=== PATIENT | female | born 1990 | race African-American/Black ===

== ENCOUNTER 2019-05-22 12:05 | Inpatient (IN) | payer SELFPAY ==
[2019-05-22 12:47] VITALS: BMI 37.5
[2019-05-22] MEDS ORDERED: DINOPROSTONE 10 MG VAGINAL SUPPOSITORY VG ONE (12:58)
[2019-05-22] MEDS ORDERED: SODIUM PHOSPHATE/NA BIPHOS 133 ML ENEMA PR ONE (12:58)
[2019-05-22] MEDS ORDERED: DEXTROSE 5%-LACTATED RINGERS 1,000 ML IV SCH (13:00)
--- NOTE | 2019-05-22 13:26 | HP ---
Past Medical History - Primary Care Physician PCP:: Priyanka Millard - Admission Chief Complaint: 28 yrs , 39.1 weeks by sono & 38.5 weeks bu dates is admitted for mild preclempsia for delivery. pt was evaluated 05/21/19 , BP max 150/87, urine protein 3+ , edema 2+, pt asymptomatic , rest of HEELP work was neg , pt agrees for induction of labor today. History of Present Illness: PNC at , [facility] wt gain 20 lbs during pregn panel :10/21/2018 : O Pos hbsag neg, hep c neg, rpr nr, hIv neg cf screen annabella, rubella immune, varicella immune, lead neg, sickle neg pap nilm, gc/ct neg 03/16/19 : 1 hr gtt 81, , rpr nr,, quantiferon neg 05/03/19 GBS neg, gc/ct neg, h/h 11.1/32.9 , hiv neg Chart review BP range afterc 33 weeks 143/87, , 130/80, 154/102, 150/88 . Urine Protein in range of 2+/3+ she is symptomatic for headache, or any visual disturbaces, vomiting etc . 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 No: Migraine Cardiovascular: Yes: HTN (during current pregn , labile) Pulmonary: No: Asthma, COPD ...: 4 ...Para: 1 (1 08/25/2009 6'5" [facility] ) ...Term: 1 ...: 0 ...Spon : 1 (2016) ...Induced : 1 (2016) ...Multiple Gestation: 0 ...LMP: 08/24/18 ... Weeks Gestation by Dates: 38.3 ...EDC by Dates: 06/02/19 ...EDC by Sono: 05/28/19 (39.1 weeks by sono ) Heme/Onc: No: Sickle Cell Trait Infectious Disease: No: AIDS, C-Diff, Herpes Zoster, HIV, MRSA, STD's, Tuberculosis, VREF, Other Psych: No: Addictions, Anxiety, Bipolar, Depression, Panic, Psychosis, Schizophrenia, Other Endocrine: No: Diabetes Mellitus, Hyperthyroidism, Hypothyroidism - Past Surgical History Past Surgical History: Yes: None Hx Myomectomy: No Hx Transabdominal Cerclage: No - Smoking History Smoking history: Never smoked - Alcohol/Substance Use Hx Alcohol Use: No Home Medications - Allergies Allergies/Adverse Reactions: Allergies Allergy/AdvReac Type Severity Reaction Status Date / Time No Known Allergies Allergy Verified 05/22/19 12:26 - Home Medications Home Medications: Ambulatory Orders Pnv No.95/Ferrous Fum/Folic AC [ Formula] 1 each PO DAILY 05/21/19 Physical Exam - Maternity Vital Signs: Vital Signs Temperature 98.0 F 05/22/19 12:41 Pulse Rate 80 05/22/19 12:41 Respiratory Rate 20 05/22/19 12:41 Blood Pressure 148/86 05/22/19 12:41 O2 Sat by Pulse Oximetry (%) Selected Entries 05/22/19 12:41 Weight 233 lb Constitutional: Yes: Well Nourished, No Distress, Obese Eyes: Yes: WNL HENT: Yes: WNL Neck: Yes: WNL Cardiovascular: Yes: WNL Breast(s): Yes: WNL - Abdominal Exam/OB Fundal Height: 38 Number of Fetuses: Single Presentation: Vertex Contractions: Yes Regularity: Irregular Intensity: Mild/Mod Monitor Mode: External Heart Rate (range): 120-130 Heart Rate Location: [facility] Category: I Accelerations: Uniform - Vaginal Exam/OB Vaginal Bleediing: No Speculum Exam: No Amniotic Membrane Status: Intact Presentation: Vertex/Position Station: -3 - Physical Exam Musculoskeletal: Yes: WNL Extremities: Yes: WNL. No: Calf Tenderness Edema: LLE: 2+, RLE: 2+ Integumentary: Yes: WNL, Tattoos Deep Tendon Reflex Grade: Normal +2 ...Motor Strength: WNL Psychiatric: Yes: WNL, Alert, Oriented - Labs Lab Results: Laboratory Tests 05/22/19 05/22/19 05/22/19 13:15 13:15 13:37 WBC 6.7 Hgb 11.6 Hct 34.9 Plt Count 207 Sodium Potassium Chloride Carbon Dioxide BUN Creatinine Random Glucose Uric Acid AST ALT Urine Protein 4+ H U Random Total Protein 666.6 H Urine Creatinine 511.0 H Protein/Creatinin Ratio 1.3 05/22/19 13:37 WBC Hgb Hct Plt Count Sodium 139 Potassium 3.9 Chloride 106 Carbon Dioxide 26 BUN 13.6 Creatinine 0.8 Random Glucose 86 Uric Acid 4.7 AST 36 ALT 32 Urine Protein U Random Total Protein Urine Creatinine Protein/Creatinin Ratio Problem List - Problems (1) with 39 completed weeks gestation Code(s): Z3A.39 - 39 WEEKS GESTATION OF (2) Mild preeclampsia Code(s): O14.00 - MILD TO MODERATE PRE-ECLAMPSIA, UNSPECIFIED TRIMESTER Qualifiers: Trimester: third trimester Qualified Code(s): O14.03 - Mild to moderate pre -eclampsia, third trimester (3) Elective induction of labor planned Code(s): ACU5373 - Assessment/Plan 28 yrs 39.1 weeks by sono & 38.5 weeks by dates admitted for induction of labor due to mild preclempsia gbs neg Plan cervidil induction started at 1.05 PM trial of vaginal delivery close monitoring of BP
[2019-05-22 14:00] LABS: EPI CELLS 9.5 /HPF (0-5/HPF); HYALINE CASTS 61 /lpf (0-8); PH,URINE 5.5 (5.0-8.0); URINE APPEARANCE CLOUDY; URINE BACTERIA 200.1 /hpf (NEGATIVE); URINE BILIRUBIN 1+ (NEGATIVE); URINE COLOR DK YELLOW; URINE GLUCOSE (UA) NEGATIVE (NEGATIVE); URINE KETONE NEGATIVE (NEGATIVE); URINE LEUK ESTERASE TRACE (NEGATIVE); URINE NITRITE NEGATIVE (NEGATIVE); URINE PROTEIN 4+ (NEGATIVE); URINE RBC 1 /hpf (0-4); URINE WBC 34 /hpf (0-5)
[2019-05-22 14:14] LABS: BASO % 0.6 % (0-2.0); EOS % 0.5 % (0-4.5); HEMATOCRIT 34.9 % (32.4-45.2); HEMOGLOBIN 11.6 GM/dL (10.7-15.3); LYMPH % 24.1 % (8-40); MCH 32.1 pg (25.7-33.7); MCHC 33.3 g/dl (32.0-36.0); MEAN CELL VOLUME 96.5 fl (80-96); MEAN PLT VOLUME 10.7 fl (7.5-11.1); MONO % 9.4 % (3.8-10.2); NEUT % 65.4 % (42.8-82.8); PLATELET COUNT 207 K/MM3 (134-434); RBC 3.62 M/mm3 (3.60-5.2); RDW 13.3 % (11.6-15.6); WHITE BLOOD COUNT 6.7 K/mm3 (4.0-10.0)
[2019-05-22 14:42] LABS: ALBUMIN 2.3 g/dl (3.4-5.0); BILIRUBIN,TOTAL 0.2 mg/dL (0.2-1); BLOOD UREA NITROGEN 13.6 mg/dL (7-18); CALCIUM 8.4 mg/dL (8.5-10.1); CREATININE 0.8 mg/dL (0.55-1.3); POTASSIUM 3.9 mmol/L (3.5-5.1); URIC ACID 4.7 mg/dL (2.6-7.2)
[2019-05-22 14:48] LABS: INR 0.92 (0.83-1.09); PROTHROMBIN TIME (PATIENT) 10.9 SEC (9.7-13.0)
[2019-05-22 14:51] LABS: ACTIVATED PTT 31.6 SECONDS (25.2-36.5)
--- NOTE | 2019-05-23 01:41 | PN ---
Progress Note (short form) - Note Progress Note: cervidil removed at 1.30 AM 1-2,cm midpose, soft / 40 % / Vx -3 FHR 120-130 reactive , cat-1 UC 4-10 min , irregular, pt unaware Selected Entries 05/22/19 05/22/19 05/23/19 21:00 23:00 00:00 Temperature 97.6 F 97.8 F Pulse Rate 60 Blood Pressure 139/82 132/81 130/65 Plan insert 2nd cervidil watch for BP ct induction of labor 2.15 AM 2nd cervidil inserted Problem List - Problems (1) with 39 completed weeks gestation Code(s): Z3A.39 - 39 WEEKS GESTATION OF (2) Mild preeclampsia Code(s): O14.00 - MILD TO MODERATE PRE-ECLAMPSIA, UNSPECIFIED TRIMESTER Qualifiers: Trimester: third trimester Qualified Code(s): O14.03 - Mild to moderate pre -eclampsia, third trimester (3) Elective induction of labor planned Code(s): TQS6466 -
[2019-05-23] MEDS ORDERED: DINOPROSTONE 10 MG VAGINAL SUPPOSITORY VG ONE (02:15)
[2019-05-23] MEDS ORDERED: FENTANYL/BUPIVACAINE/NS/PF - PCEA - 50 ML DISP.SYRIN EP ONE (12:39)
[2019-05-23] MEDS ORDERED: ELECTROLYTE-148 SOLN 1,000 ML IV SCH (12:45)
--- NOTE | 2019-05-23 12:57 | PN ---
Progress Note, Labor Vaginal Exam #1 Labor Exam Date: 05/23/19 Labor Exam Time: 12:30 Heart Rate (range): 120 Dilatation: 5 Effacement (%): 90 Amniotic Membrane Status: Intact Presentation: Vertex/Position Station: 0 Remarks: fhr cat1 uc q3-5 min pt uncomfortable cervidil removed 12.45 PM srom clear Selected Entries 05/23/19 05/23/19 05/23/19 05:00 08:00 10:00 Temperature 98.5 F 98.0 F 98.2 F Pulse Rate 75 86 85 Blood Pressure 146/85 115/74 134/73 Blood Pressure Mean 05/23/19 12:00 Temperature Pulse Rate 67 Blood Pressure Blood Pressure 107 Mean Vaginal Exam #2 Labor Exam Date: 05/23/19 Labor Exam Time: 13:45 Heart Rate (range): 130 Dilatation: 10 Effacement (%): 100 Amniotic Membrane Status: Ruptured Presentation: Vertex/Position Station: +1 (+1/+2) Remarks: FHR cat-1 uc q2-3 min pt c/o pain BP 152/102 epidural received at 1.30 PM, , no pain relief no urge to push yet wait for passive descent, before encouraging her pushing
[2019-05-23] MEDS ORDERED: SODIUM CHLORIDE 0.9% P/F 10 ML VIAL IJ ONE ×2 (13:02)
[2019-05-23] MEDS ORDERED: BUPIVACAINE HCL/PF 2.5 MG/ML - 30 ML VIAL IJ ONE (13:03)
[2019-05-23] MEDS ORDERED: OXYTOCIN 20 UNITS in 0.9% NS 20 UNIT/1,000 ML INFUS.BAG IV ONE (13:47)
[2019-05-23] MEDS ORDERED: LIDOCAINE HCL 1% PRESERVATIVE FREE - 30ML VIAL ONE (13:47)
[2019-05-23] MEDS ORDERED: NALOXONE HCL 0.4 MG/ML VIAL IVPUSH PRN (13:52)
[2019-05-23] MEDS ORDERED: FENTANYL/BUPIVACAINE/NS/PF - PCEA - 50 ML DISP.SYRIN EP SCH (14:00)
[2019-05-23] MEDS: OXYTOCIN 20 UNITS in 0.9% NS 20 UNIT/1,000 ML INFUS.BAG IV SCH ×2 (14:20→19:00)
[2019-05-23] MEDS ORDERED: BENZOCAINE 20% 57 GM BOTTLE TP PRN (14:26)
[2019-05-23] MEDS ORDERED: oxyCODONE HCL 5 MG TABLET PO PRN (14:26)
[2019-05-23] MEDS ORDERED: WITCH HAZEL 50% (TUCKS) 40 PAD/JAR PAD TP PRN (14:26)
[2019-05-23] MEDS ORDERED: BISACODYL 10 MG SUPP.RECT RC PRN (14:26)
[2019-05-23] MEDS ORDERED: BENZOCAINE 28 GM HEMORRHOIDAL OINTMENT TP PRN (14:26)
--- NOTE | 2019-05-23 14:37 | PN ---
Delivery - Delivery Vaginal Delivery: No Problems, Spontaneous (, on sterile field, vx, laurence position, 9/10 , baby boy , immediate oral & nasal suction was done , perineum intact . Placenta delevered with membranes completely . cord blood collected . trivascular cord sponge count correct) EBL (cc): 300 (50 ml bladder cathetrized ) Delivery, Single - Stages of Labor Date 1st Stage Initiatied: 05/23/19 Time 1st Stage Initiated: 10:00 Date 2nd Stage Initiated: 05/16/19 Time 2nd Stage Initiated: 13:45 Date of Delivery: 05/23/19 Time of Delivery: 14:13 Date Placenta Delivered: 05/23/19 Time Placenta Delivered: 14:20 Placenta: Yes: Spontaneous, Uterine Exploration - Condition of Infant Tram Driver/Tag Maker Present: No Gender: Male Weight: 6 lb 4 oz Position: Left, OA Total Hours ROM (Hrs/Mins): 1.35 min - 1 Minute Total Score: 9 5 Minutes Total Score: 10 - Feeding Plan Initial Plan: Elected not to breastfeed exclusively throughout hospitalization Remarks - Remarks Remarks: 28 yrs , 38.5 weeks by dates, 39.1 weeks by sono admitted for induction of labor due to mid preclempsia ( proteinuria 4+ ) , elevation of BP pnc at 2, [facility] gbs neg Cervidil inserted 05/22/19 2nd cervidil inserted 05/23/19 pt progress in labor uneventful except during last 1 hr before delivery BP elevated , possible due to pain, she did not obtain relief from epidural labor analgesia urine sample sent for urine protei/cr ratio pp BP :149/81, 143/93 , 138/81, pulse 69 plan po labetalol prn
[2019-05-23] MEDS ORDERED: LABETALOL HCL 200 MG TABLET (FP) ONE (15:33)
[2019-05-23] MEDS: LABETALOL HCL 200 MG TABLET (FP) PO PRN (15:36)
[2019-05-23] MEDS: IBUPROFEN 600 MG TABLET (FP) PO PRN (17:48)
[2019-05-23] MEDS: FERROUS SO4 325 MG TABLET (FP) PO SCH (17:48)
[2019-05-23] MEDS: ACETAMINOPHEN 325 MG TABLET (FP) PO PRN (17:49)
[2019-05-23] MEDS ORDERED: CARBOPROST TROMETHAMINE 250 MCG/ML AMPUL IM ONE (18:52)
[2019-05-23] MEDS ORDERED: LABETALOL HCL 5 MG/1 ML (100MG/20 ML VIAL) IVPUSH ONE (18:55)
--- NOTE | 2019-05-23 19:05 | PN ---
Progress Note (short form) - Note Progress Note: nurse called me to tell pt is bleeding heavy, saturated chucks in the bed pt voiided urine 550 ml pt received 200 mg po labetalol at 4.36 PM Selected Entries 05/23/19 05/23/19 05/23/19 15:14 15:30 15:45 Temperature 97.7 F Pulse Rate Blood Pressure 155/87 154/83 147/101 H 05/23/19 16:25 Temperature Pulse Rate 89 Blood Pressure 145/106 H 6.45 PM pt alert ut upto umblicus MEU done large blood clots removed from lower segment approx total 100-150 ml blood clots bp 162/107 may be due to pain factor also stat IM Hemabate 250 mcg im given repeat BP 7.05PM 162/104 IV PUSH Labetlol 20 mg given Plan transfer pt to L&D for MgSo4 prophylaxis Laboratory Tests 05/23/19 15:00 U Random Total Protein 368.4 H Urine Creatinine 102.0 Protein/Creatinin Ratio 3.6 7.45PM ,pt had episode of diarrhea post im hemabate injection . ut firm upto umblicus c/o cramps . bleeding moderate to small amount BP 149/89 Mgso4 started Cconsult with Dr Crawford in AM Problem List - Problems (1) with 39 completed weeks gestation Code(s): Z3A.39 - 39 WEEKS GESTATION OF (2) Mild preeclampsia Code(s): O14.00 - MILD TO MODERATE PRE-ECLAMPSIA, UNSPECIFIED TRIMESTER Qualifiers: Trimester: third trimester Qualified Code(s): O14.03 - Mild to moderate pre -eclampsia, third trimester (3) Elective induction of labor planned Code(s): [id number] -
[2019-05-23] MEDS ORDERED: MAGNESIUM 4GM/H20 - 4 GM/100 ML IVPB IVPB SCH (19:30)
[2019-05-23] MEDS ORDERED: MAGNESIUM SULFATE 20GM/500ML - 20 GM/500 ML INFUS.BAG IVPB SCH (20:00)
[2019-05-23] MEDS ORDERED: MAGNESIUM SULFATE 20GM/500ML - 20 GM/500 ML INFUS.BAG ONE (20:16)
[2019-05-24] MEDS ORDERED: OXYTOCIN 20 UNITS in 0.9% NS 20 UNIT/1,000 ML INFUS.BAG IV ONE (04:54)
[2019-05-24] MEDS: OXYTOCIN 20 UNITS in 0.9% NS 20 UNIT/1,000 ML INFUS.BAG IV SCH (04:55)
[2019-05-24] MEDS: LABETALOL HCL 200 MG TABLET (FP) PO PRN ×2 (05:05→13:15)
[2019-05-24 07:08] LABS: BASO % 0.2 % (0-2.0); EOS % 0.3 % (0-4.5); HEMATOCRIT 28.7 % (32.4-45.2); LYMPH % 15.3 % (8-40); MCHC 34.7 g/dl (32.0-36.0); MEAN CELL VOLUME 95.1 fl (80-96); MEAN PLT VOLUME 9.9 fl (7.5-11.1); MONO % 10.4 % (3.8-10.2); NEUT % 73.8 % (42.8-82.8); PLATELET COUNT 176 K/MM3 (134-434); RBC 3.02 M/mm3 (3.60-5.2); RDW 13.4 % (11.6-15.6); WHITE BLOOD COUNT 10.3 K/mm3 (4.0-10.0)
--- NOTE | 2019-05-24 08:07 | PN ---
Post Progress Note - Subjective Subjective: no c/o headache or dizziness bleeding is not excessive no c/o cramps Post Day: 1 Type of Delivery: Vital Signs: Vital Signs Temperature 97.8 F 05/24/19 07:00 Pulse Rate 65 05/24/19 07:00 Respiratory Rate 18 05/24/19 07:00 Blood Pressure 120/68 05/24/19 07:00 O2 Sat by Pulse Oximetry (%) 99 05/23/19 15:30 Selected Entries 05/24/19 05/24/19 05/24/19 03:00 04:00 05:00 Temperature Pulse Rate 84 62 96 H Blood Pressure 137/76 121/71 143/90 05/24/19 06:00 Temperature 98.4 F Pulse Rate 74 Blood Pressure 154/78 Breast Exam: Yes: Soft. No: Engorged Uterus: Yes: Fundus Firm, Fundus below umbilicus, Non-tender Lochia: Yes: Rubra Lochia, amount: Moderate Extremities: Yes: Calves non-tender Perineum: Yes: Intact Activity: Ambulating - Labs Labs: CBC WBC 10.3 K/mm3 (4.0-10.0) H 05/24/19 06:50 RBC 3.02 M/mm3 (3.60-5.2) L 05/24/19 06:50 Hgb 10.0 GM/dL (10.7-15.3) L 05/24/19 06:50 Hct 28.7 % (32.4-45.2) L D 05/24/19 06:50 MCV 95.1 fl (80-96) 05/24/19 06:50 MCH 33.0 pg (25.7-33.7) 05/24/19 06:50 MCHC 34.7 g/dl (32.0-36.0) 05/24/19 06:50 RDW 13.4 % (11.6-15.6) 05/24/19 06:50 Plt Count 176 K/MM3 (134-434) 05/24/19 06:50 MPV 9.9 fl (7.5-11.1) 05/24/19 06:50 Absolute Neuts (auto) 7.6 K/mm3 (1.5-8.0) 05/24/19 06:50 Neutrophils % 73.8 % (42.8-82.8) 05/24/19 06:50 Lymphocytes % 15.3 % (8-40) D 05/24/19 06:50 Monocytes % 10.4 % (3.8-10.2) H 05/24/19 06:50 Eosinophils % 0.3 % (0-4.5) 05/24/19 06:50 Basophils % 0.2 % (0-2.0) 05/24/19 06:50 Nucleated RBC % 0 % (0-0) 05/24/19 06:50 Laboratory Tests 05/24/19 05/24/19 00:30 06:30 Magnesium 2.9 H 3.3 H Other Findings, Remarks: rs cta reflex 1+/1+ i/o 1000 /925 Problem List - Problems (1) with 39 completed weeks gestation Code(s): Z3A.39 - 39 WEEKS GESTATION OF (2) Mild preeclampsia Code(s): O14.00 - MILD TO MODERATE PRE-ECLAMPSIA, UNSPECIFIED TRIMESTER Qualifiers: Trimester: third trimester Qualified Code(s): O14.03 - Mild to moderate pre -eclampsia, third trimester (3) Elective induction of labor planned Code(s): LLN6611 - (4) (normal spontaneous vaginal delivery) Code(s): O80 - ENCOUNTER FOR FULL-TERM UNCOMPLICATED DELIVERY (5) PPH ( hemorrhage) Code(s): O72.1 - OTHER IMMEDIATE HEMORRHAGE Qualifiers: hemorrhage type: other immediate Qualified Code(s): O72.1 - Other immediate hemorrhage (6) examination following vaginal delivery Code(s): Z39.2 - ENCOUNTER FOR ROUTINE FOLLOW-UP Assessment/Plan pt stable, not symptomatic BP fluctuating reReceived one dose of po labetalol last night pt is concerned about undescended testes in the baby . will continue MgSo4 until 1.[address] Crawford consult today will repeat urine protein/cr ratio
[2019-05-24] MEDS: FERROUS SO4 325 MG TABLET (FP) PO SCH ×2 (09:20→18:08)
[2019-05-24] MEDS: PRENATAL VITAMINS W/ FOLIC ACID TABLET (FP) PO SCH (09:20)
--- NOTE | 2019-05-24 11:49 | CONSULT ---
Consult - text type - Consultation Consultation Note: Renal consult for hypertension This is a 28 year old woman with no significant medical history who presented at 39 weeks gestation with pre-eclamspia now s/p vaginal delivery on 05/23 with hypertension. Seen and examined at the bedside. She offers no acute complaints. Denies any pain, shortness of breath, fever, chills, N/V/D. Currently on IV Magnesium. Making urine. Has leg swelling. BP was elevated on last 2 OB visits. + Family history of hypertension. No personal history of hypertension. No Tobacco use. PMHx: as above Allergies: NKDA Family Hx: NC Social Hx: No T/A/D ROS: as per HPI, all other pertinent ros negative Home Medications Medication Instructions Recorded Pnv No.95/Ferrous Fum/Folic AC 1 each PO DAILY 05/21/19 [ Formula Tablet] Acetaminophen [Tylenol .Regular 650 mg PO Q3H PRN tablet 05/24/19 Strength -] Ferrous Sulfate [Feosol] 325 mg PO DAILY #30 tab 05/24/19 Ibuprofen [Motrin -] 200 mg PO Q4H PRN tablet 05/24/19 Vitamins (Sjr) - 1 tab PO DAILY #30 tablet 05/24/19 Vital Signs Temperature 98.3 F 05/24/19 11:00 Pulse Rate 70 05/24/19 10:00 Respiratory Rate 18 05/24/19 11:00 Blood Pressure 133/70 05/24/19 11:00 O2 Sat by Pulse Oximetry (%) 99 05/23/19 15:30 Intake & Output 05/21/19 05/22/19 05/23/19 05/24/19 23:59 23:59 23:59 23:59 Intake Total 2715 1250 Output Total 1200 1375 Balance 1515 -125 Weight 105.687 kg NAD awake and alert necks supple, no JVD RRR, no M/R CTA + trace LE edema CBC, BMP 05/24/19 06:50 05/22/19 13:37 Laboratory Tests 05/22/19 05/22/19 05/22/19 13:15 13:15 13:37 AST 36 ALT 32 Alkaline Phosphatase 331 H Urine Protein 4+ H Protein/Creatinin Ratio 1.3 05/23/19 05/24/19 15:00 09:00 AST ALT Alkaline Phosphatase Urine Protein Protein/Creatinin Ratio 3.6 1.5 Current Medications Acetaminophen (Tylenol -) 650 mg PO Q3H PRN PRN Reason: PAIN LEVEL 1-5 Last Admin: 05/23/19 17:49 Dose: 650 mg Benzocaine (Americaine 20% [place] -) 1 spray TP PRN PRN PRN Reason: PAIN Benzocaine (Americaine Ointment -) 1 applic TP PRN PRN PRN Reason: PAIN Bisacodyl (Dulcolax Suppository -) 10 mg RC PRN PRN PRN Reason: CONSTIPATION Ferrous Sulfate (Feosol -) 325 mg PO BIDWM [facility] Last Admin: 05/24/19 09:20 Dose: 325 mg Oxytocin/Sodium Chloride (Normal Saline+20 Units Oxytocin -) 20 unit in 1,000 mls @ 125 mls/hr IV [facility] Last Admin: 05/24/19 04:55 Dose: 125 mls/hr Magnesium Sulfate (Magnesium 4gm/H20 -) 4 gm in 100 mls @ 200 mls/hr IVPB [facility] Last Admin: 05/23/19 19:45 Dose: 200 mls/hr Magnesium Sulfate (Magnesium Sulfate 20gm/500ml -) 20 gm in 500 mls @ 25 mls/ hr IVPB [facility] Last Admin: 05/23/19 20:30 Dose: 25 mls/hr Ibuprofen (Motrin -) 600 mg PO Q4H PRN PRN Reason: PAIN LEVEL 4 - 6 Last Admin: 05/23/19 17:48 Dose: 600 mg Labetalol HCl (Normodyne -) 200 mg PO Q6H PRN PRN Reason: HYPERTENSION Last Admin: 05/24/19 05:05 Dose: 200 mg Oxycodone HCl (Roxicodone -) 5 mg PO Q6H PRN PRN Reason: PAIN LEVEL 7 - 10 Last Admin: 05/23/19 14:30 Dose: 5 mg Multivit/Folic Acid/Iron ( Vitamins (Sjr) -) 1 tab PO DAILY [facility] Last Admin: 05/24/19 09:20 Dose: 1 tab Senna/Docusate Sodium (Pericolace -) 2 tablet PO HS PRN PRN Reason: CONSTIPATION Witch Renay/Glycerin (Tucks Pads -) 1 pad TP PRN PRN PRN Reason: PAIN 28 year old woman with no significant medical history who presented at 39 weeks gestation with pre-eclamspia now s/p vaginal delivery on 05/23 with hypertension. 1. hypertension 2. Preeclamspia 3. s/p vaginal delivery 4. Anemia BP is currently moderated. Continue Labetallol 200mg Q6h PRN for SBP > 140, DBP > 90 Low sodium diet Minimize NSIAD use if possible explained symptoms of hypertension + hypotension Would monitor as inpatient for additional 24 hours Donell Crawford DO
[2019-05-24] MEDS ORDERED: ACETAMINOPHEN 325 MG TABLET (FP) ONE (13:14)
[2019-05-24] MEDS ORDERED: IBUPROFEN 600 MG TABLET (FP) PO ONE (13:14)
[2019-05-24] MEDS: ACETAMINOPHEN 325 MG TABLET (FP) PO PRN ×2 (13:15→22:58)
[2019-05-24] MEDS: IBUPROFEN 600 MG TABLET (FP) PO PRN ×2 (13:15→22:58)
[2019-05-24] MEDS ORDERED: SENNOSIDES/DOCUSATE COMBO (SENNA PLUS) TABLET (UD) PO PRN (22:00)
--- NOTE | 2019-05-25 07:46 | PN ---
Post Progress Note - Subjective Subjective: Patient is doing well, ambulating, toleraing PO, voiding, desiring infant's circumcision, no QIU, no vision changes, no CP, no sOB, no epigastric pain, no N/ V Post Day: 2 Type of Delivery: Vital Signs: Vital Signs Temperature 98.0 F 05/25/19 06:00 Pulse Rate 63 05/25/19 06:00 Respiratory Rate 20 05/25/19 06:00 Blood Pressure 128/72 05/25/19 06:00 O2 Sat by Pulse Oximetry (%) 99 05/23/19 15:30 Breast Exam: Yes: Other (deferred) Uterus: Yes: Fundus Firm Abdomen/GI: Yes: Abdomen soft (n/t, n/d) Lochia, amount: Moderate Extremities: Yes: Calves non-tender (2+DTR, no clonus) Activity: Ambulating - Labs Labs: CBC WBC 10.3 K/mm3 (4.0-10.0) H 05/24/19 06:50 RBC 3.02 M/mm3 (3.60-5.2) L 05/24/19 06:50 Hgb 10.0 GM/dL (10.7-15.3) L 05/24/19 06:50 Hct 28.7 % (32.4-45.2) L D 05/24/19 06:50 MCV 95.1 fl (80-96) 05/24/19 06:50 MCH 33.0 pg (25.7-33.7) 05/24/19 06:50 MCHC 34.7 g/dl (32.0-36.0) 05/24/19 06:50 RDW 13.4 % (11.6-15.6) 05/24/19 06:50 Plt Count 176 K/MM3 (134-434) 05/24/19 06:50 MPV 9.9 fl (7.5-11.1) 05/24/19 06:50 Absolute Neuts (auto) 7.6 K/mm3 (1.5-8.0) 05/24/19 06:50 Neutrophils % 73.8 % (42.8-82.8) 05/24/19 06:50 Lymphocytes % 15.3 % (8-40) D 05/24/19 06:50 Monocytes % 10.4 % (3.8-10.2) H 05/24/19 06:50 Eosinophils % 0.3 % (0-4.5) 05/24/19 06:50 Basophils % 0.2 % (0-2.0) 05/24/19 06:50 Nucleated RBC % 0 % (0-0) 05/24/19 06:50 Assessment/Plan PPD # 2 S/P magnesium prophylaxis for PEc with severe features, asymptomatic and BP in normal range on labetalol, PEC labs are stable, infant with undescended testis. -continue PP care -anticipate D/C home on PPD # 3 -Infant's circumcision on peds clearance -Continue labetalol for BP control
[2019-05-25] MEDS: FERROUS SO4 325 MG TABLET (FP) PO SCH ×2 (09:00→17:42)
[2019-05-25] MEDS: IBUPROFEN 600 MG TABLET (FP) PO PRN (09:57)
[2019-05-25] MEDS: PRENATAL VITAMINS W/ FOLIC ACID TABLET (FP) PO SCH (09:58)
[2019-05-25] MEDS: ACETAMINOPHEN 325 MG TABLET (FP) PO PRN ×2 (09:58→17:42)
--- NOTE | 2019-05-25 12:52 | PN ---
Progress Note (short form) - Note Progress Note: Renal follow up for hypertension Seen and examined at the bedside awake and alert offers no acute complaints no chest pain, shortness of breath Vital Signs Temperature 97 F L 05/25/19 09:32 Pulse Rate 71 05/25/19 09:32 Respiratory Rate 18 05/25/19 09:32 Blood Pressure 127/89 05/25/19 09:32 O2 Sat by Pulse Oximetry (%) 99 05/23/19 15:30 Intake & Output 05/22/19 05/23/19 05/24/19 05/25/19 23:59 23:59 23:59 23:59 Intake Total 2715 1875 Output Total 1200 1825 Balance 1515 50 Weight 105.687 kg NAD awake and alert necks supple, no JVD RRR, no M/R CTA + trace LE edema CBC, BMP 05/24/19 06:50 05/22/19 13:37 Current Medications Acetaminophen (Tylenol -) 650 mg PO Q3H PRN PRN Reason: PAIN LEVEL 1-5 Last Admin: 05/25/19 09:58 Dose: 650 mg Benzocaine (Americaine 20% [place] -) 1 spray TP PRN PRN PRN Reason: PAIN Benzocaine (Americaine Ointment -) 1 applic TP PRN PRN PRN Reason: PAIN Last Admin: 05/25/19 10:02 Dose: 1 applic Bisacodyl (Dulcolax Suppository -) 10 mg RC PRN PRN PRN Reason: CONSTIPATION Ferrous Sulfate (Feosol -) 325 mg PO BIDWM [facility] Last Admin: 05/25/19 09:00 Dose: 325 mg Oxytocin/Sodium Chloride (Normal Saline+20 Units Oxytocin -) 20 unit in 1,000 mls @ 125 mls/hr IV [facility] Last Admin: 05/24/19 04:55 Dose: 125 mls/hr Magnesium Sulfate (Magnesium 4gm/H20 -) 4 gm in 100 mls @ 200 mls/hr IVPB [facility] Last Admin: 05/23/19 19:45 Dose: 200 mls/hr Magnesium Sulfate (Magnesium Sulfate 20gm/500ml -) 20 gm in 500 mls @ 25 mls/ hr IVPB [facility] Last Admin: 05/23/19 20:30 Dose: 25 mls/hr Ibuprofen (Motrin -) 600 mg PO Q4H PRN PRN Reason: PAIN LEVEL 4 - 6 Last Admin: 05/25/19 09:57 Dose: 600 mg Labetalol HCl (Normodyne -) 200 mg PO Q6H PRN PRN Reason: HYPERTENSION Last Admin: 05/24/19 13:15 Dose: 200 mg Oxycodone HCl (Roxicodone -) 5 mg PO Q6H PRN PRN Reason: PAIN LEVEL 7 - 10 Last Admin: 05/23/19 14:30 Dose: 5 mg Multivit/Folic Acid/Iron ( Vitamins (Sjr) -) 1 tab PO DAILY [facility] Last Admin: 05/25/19 09:58 Dose: 1 tab Senna/Docusate Sodium (Pericolace -) 2 tablet PO HS PRN PRN Reason: CONSTIPATION Witch Renay/Glycerin (Tucks Pads -) 1 pad TP PRN PRN PRN Reason: PAIN Last Admin: 05/25/19 10:02 Dose: 1 pad 28 year old woman with no significant medical history who presented at 39 weeks gestation with pre-eclamspia now s/p vaginal delivery on 05/23 with hypertension. 1. hypertension 2. Preeclamspia 3. s/p vaginal delivery 4. Anemia BP is improved, has no required medication since yesterday afternoon at 1pm Continue PRN labetalol for now Low salt diet Minimize NSIAD use if possible if BP remains at goal can plan discharge in AM Donell Crawford DO
[2019-05-25] MEDS: LABETALOL HCL 200 MG TABLET (FP) PO PRN (13:20)
[2019-05-26] MEDS: FERROUS SO4 325 MG TABLET (FP) PO SCH (08:00)
--- NOTE | 2019-05-26 08:02 | DS ---
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 Vital Signs: Vital Signs Temperature 98.4 F 05/26/19 05:40 Pulse Rate 83 05/26/19 05:40 Respiratory Rate 18 05/26/19 05:40 Blood Pressure 137/78 05/26/19 05:40 O2 Sat by Pulse Oximetry (%) 99 05/23/19 15:30 Constitutional: Yes: Well Nourished, Other (no c/o headache or diziness or pain) Eyes: Yes: WNL HENT: Yes: WNL Neck: Yes: WNL Cardiovascular: Yes: WNL Respiratory: Yes: WNL Gastrointestinal: Yes: WNL, Hemorrhoids ...Rectal Exam: Yes: WNL Renal/: Yes: WNL, Other (urine protein uria diminishing , output adequate) ....Post : Yes: Uterus firm, Uterus non-tender, Moderate lochia rubra ( perineum intact) Breast(s): Yes: WNL (, non tender), Other Musculoskeletal: Yes: WNL Extremities: Yes: WNL. No: Calf Tenderness Edema: LLE: 1+, RLE: 1+ Neurological: Yes: WNL, Other (reflexes normal) ...Motor Strength: WNL Psychiatric: Yes: WNL Labs: CBC, BMP 05/24/19 06:50 05/22/19 13:37 Laboratory Tests 05/22/19 05/23/19 05/24/19 13:15 15:00 09:00 U Random Total Protein 666.6 H 368.4 H 99.2 H Urine Creatinine 511.0 H 102.0 67.0 Protein/Creatinin Ratio 1.3 3.6 1.5 05/25/19 08:45 U Random Total Protein 27.7 H Urine Creatinine 35.0 Protein/Creatinin Ratio 0.8 Delivery - Delivery Vaginal Delivery: No Problems, Spontaneous (, on sterile field, vx, laurence position, 9/10 , baby boy , immediate oral & nasal suction was done , perineum intact . Placenta delevered with membranes completely . cord blood collected . trivascular cord sponge count correct) Type of Anesthesia: Epidural Episiotomy/Laceration: None EBL (cc): 300 (50 ml bladder cathetrized ) Delivery, Single - Stages of Labor Date 1st Stage Initiatied: 05/23/19 Time 1st Stage Initiated: 10:00 Date 2nd Stage Initiated: 05/16/19 Time 2nd Stage Initiated: 13:45 Date of Delivery: 05/23/19 Time of Delivery: 14:13 Time Placenta Delivered: 14:20 Placenta: Yes: Spontaneous, Uterine Exploration - Condition of Price Clerk/Beam Department Supervisor Present: No Infant Gender: Male Weight: 6 lb 4 oz Position: Left, OA Total Hours ROM (Hrs/Mins): 1.35 min - 1 Minute Total Score: 9 5 Minutes Total Score: 10 - Feeding Plan Initial Plan: Elected not to breastfeed exclusively throughout hospitalization Remarks - Remarks Remarks: 28 yrs , 38.5 weeks by dates, 39.1 weeks by sono admitted for induction of labor due to mid preclempsia ( proteinuria 4+ ) , elevation of BP pnc at [address] [place] [address] gbs neg Cervidil inserted 05/22/19 2nd cervidil inserted 05/23/19 pt progress in labor uneventful except during last 1 hr before delivery BP elevated , possible due to pain, she did not obtain relief from epidural labor analgesia urine sample sent for urine protei/cr ratio pp BP :149/81, 143/93 , 138/81, pulse 69 plan po labetalol prn . pp :3-4 hrs later PPH episode , atonic, IM Hemabate was given pp MgSo4 prophylaxis given labetalol prn for BP control she required only once 200 mg po in [address] Crawford consult was appreciated discharge today pending Dr Crawford clearance & hid recommendations for Labetolol meds anemia counselled Dr Crawford cleared the pt for discharge, did not require any meds for BP to take home. she will follow in the clinic 1-2 wk for BP ckeck discharge 05/26/19. Discharge Summary Problems reviewed: Yes Reason For Visit: INDUCTION PRE ECLAMPSIA Current Active Problems Elective induction of labor planned (Acute) Mild preeclampsia (Acute) (normal spontaneous vaginal delivery) (Acute) PPH ( hemorrhage) (Acute) examination following vaginal delivery (Acute) with 39 completed weeks gestation (Acute) Procedures: Principal: induction of labor. Hospital Course: preclempsia management BP management Health Concerns: BP monitoring Plan of Treatment: as directed Condition: Stable - Instructions Diet, Activity, Other Instructions: Follow up in on week for a blood pressure check Post Instructions DIET: Continue good diet high in protein, calcium, and iron rich foods. Drink at least eight (8) glasses of water daily in addition to other fluids. ___ Regular diet MEDICATIONS: Continue vitamins and iron as previously directed. Motrin and Tylenol may be taken for minor discomfort. ACTIVITY: Mild to moderate exercise may be started in two (2) weeks. Take frequent rest periods. Resume normal activity after six (6) week check up. WOUND CARE OF OPERATIVE SITE: Continue use of perineal bottle until vaginal discharge stops. Keep area clean. Shower daily. Keep abdominal wound dry. Report any drainage or redness to physician. Tub baths, tampons and douches are not permitted for [address] Breast feeding & or Bottle feeding BREAST CARE: (For those that are not breast feeding): If engorgement occurs: Wear tight fitting bra. Take Tylenol or Motrin for pain. Apply cold packs (ice in bags to each breast ) FAMILY PLANNING: There are many control alternatives to pursue and they should be discussed at your first office visit. You may resume sexual activity after your six (6) week check up. (Remember, breast feeding is not a contraceptive) NEXT PHYSICIAN APPOINTMENT: Be certain to call for a two (2) week appointment, unless otherwise directed. BP Check UP Call Clinic or got to Emergency Dept if you have any of the following: Heavy vaginal bleeding Painful urination Leg pain Unusual odor noted to vaginal bleeding High fever Red streaking noted on breast Referrals: Priyanka Millard MD [Staff Physician] - Disposition: HOME - Home Medications Comprehensive Discharge Medication List: Ambulatory Orders Pnv No.95/Ferrous Fum/Folic AC [ Formula Tablet] 1 each PO DAILY Acetaminophen [Tylenol .Regular Strength -] 650 mg PO Q3H PRN tablet 05/24/19 Ferrous Sulfate [Feosol] 325 mg PO DAILY #30 tab 05/24/19 Ibuprofen [Motrin -] 200 mg PO Q4H PRN tablet 05/24/19 Vitamins (Sjr) - 1 tab PO DAILY #30 tablet 05/24/19 Prescription Drug Monitoring Program (I-STOP) results: I-STOP reviewed and no issues identified
[2019-05-26] MEDS: PRENATAL VITAMINS W/ FOLIC ACID TABLET (FP) PO SCH (09:24)
[2019-05-26] MEDS: ACETAMINOPHEN 325 MG TABLET (FP) PO PRN (09:30)
[2019-05-26] MEDS: IBUPROFEN 600 MG TABLET (FP) PO PRN (09:31)
[2019-05-26 10:46] VITALS: BP 144/77; PULSE 63; TEMP 97.9
--- NOTE | 2019-05-26 15:44 | PN ---
Progress Note (short form) - Note Progress Note: Renal follow up for hypertension Seen and examined at the bedside no acute complaints no QIU, CP, blurry vision BP has been at goal w/o medications over the past 24 hours Vital Signs Temperature 97.9 F 05/26/19 09:00 Pulse Rate 63 05/26/19 09:00 Respiratory Rate 17 05/26/19 09:00 Blood Pressure 144/77 05/26/19 09:00 O2 Sat by Pulse Oximetry (%) 99 05/23/19 15:30 Intake & Output 05/23/19 05/24/19 05/25/19 05/26/19 23:59 23:59 23:59 23:59 Intake Total 2715 1875 Output Total 1200 1825 Balance 1515 50 NAD awake and alert necks supple, no JVD RRR, no M/R CTA + trace LE edema CBC, BMP 05/24/19 06:50 05/22/19 13:37 28 year old woman with no significant medical history who presented at 39 weeks gestation with pre-eclamspia now s/p vaginal delivery on 05/23 with hypertension. 1. hypertension 2. Preeclamspia 3. s/p vaginal delivery 4. Anemia BP is improved, has no required medication can be discharged without antihypertensive medications educated on symptoms of high BP (QIU, blurry vision, dizziness, chest pain, etc) requested that she maintain a low salt diet at home for the time being to follow up in OB office in a few days and have BP rechecked stable for discharge home. Donell Crawford DO
== END 2019-05-26 13:30 | disposition home or self-care (01) | DRG 560 ==
LOC: JLDR 12:05 → J3W 05-23 15:45 → JLDR 05-23 19:30 → J3W 05-24 14:20
PROVIDERS: ADMIT Obstetrics & Gynecology; ATTEND Obstetrics & Gynecology
PROC: 10E0XZZ Delivery of Products of Conception, External Approach (ICD-10-PCS; principal; 2019-05-23)
DX: O14.04 Mild to moderate pre-eclampsia, complicating childbirth (principal); O72.1 Other immediate postpartum hemorrhage; O99.02 Anemia complicating childbirth; D64.9 Anemia, unspecified; O16.5 Unspecified maternal hypertension, complicating the puerperium; Z3A.39 39 weeks gestation of pregnancy; Z37.0 Single live birth
CPT/HCPCS: 36415; 59409; 80053; 81003; 82570; 83735; 84156; 84550; 85025; 85610; 85730; 86593; 86850; 86900; 86901

== ENCOUNTER 2024-02-15 16:25 | Emergency (ER) | payer OTHER ==
[2024-02-15 16:32] VITALS: BP 125/80; PULSE 63; RESP 20; TEMP 98.3; BMI 33.8
== END 2024-02-15 18:31 | disposition home or self-care (01) ==
LOC: JERFT 16:25
DX: M25.462 Effusion, left knee (principal); M25.562 Pain in left knee; X50.1XXA Overexertion from prolonged static or awkward postures, initial encounter
CPT/HCPCS: 73562-TC-LT-FY; 84703; 99283-25